=== PATIENT | male | born 1985 | race Hispanic/Latino ===

== ENCOUNTER → 2024-12-31 | Outpatient (CLI) | payer BC ==
[~2024-12-31] MED LIST: IOHEXOL-350 75 ML VIAL IV ONE
--- NOTE | 2024-12-31 19:57 | HMCIMG ---
EXAM: CT Abdomen and Pelvis without and with IV contrast CLINICAL HISTORY: Diverticulitis TECHNIQUE: Thin collimated axial CT images of the abdomen and pelvis were obtained, with sagittal and coronal reformatted images also submitted. A CT scan is performed according to the ALARA principle (As Low As Reasonably Achievable). CONTRAST: Yes. COMPARISON: None. FINDINGS: No focal abnormality within the liver, gallbladder, pancreas, spleen, adrenals, or kidneys. No bowel obstruction. Bowel wall thickening in the sigmoid colon with adjacent stranding. This likely represents colitis. No free air, free fluid or fluid collection. No bowel obstruction. Normal appendix. There is no abnormality within the urinary bladder. Unremarkable reproductive organs. Abdominal and pelvic vessels are patent. No lymphadenopathy. No free fluid. There is no acute osseous abnormality. A defect measuring 2.2 cm was seen in the umbilical region with herniation of omental fat through the defect, suggestive of umbilical hernia. A small left-sided inguinal hernia. Right pleural calcification and bibasal atelectasis noted in visualized lung bases. IMPRESSIONS: Diffuse long-segment circumferential thickening of sigmoid and descending colon with mild pericolonic fat stranding, likely representing colitis. No bowel obstruction. Normal appendix. No abscess or perforation in the abdomen or pelvis. Small umbilical hernia /Viral
== END | disposition home or self-care (01) ==
LOC: RAH 07:29
PROVIDERS: ATTEND Family Medicine
DX: K42.9 Umbilical hernia without obstruction or gangrene (principal); K57.92 Diverticulitis of intestine, part unspecified, without perforation or abscess without bleeding; K40.90 Unilateral inguinal hernia, without obstruction or gangrene, not specified as recurrent
CPT/HCPCS: 74178; Q9967